=== PATIENT | male | born 1945 | race Caucasian/White ===

== ENCOUNTER → 2024-01-18 | Day surgery (SDC) | payer MEDICARE ==
[~2024-01-18] MED LIST: Iohexol 300 - 10 ML VIAL IV ONE; Midazolam 2 MG/2 ML VIAL IV ONE; Topical Skin Adhesive 1 EACH (0.5 ML) TOP ONE; fentaNYL 100 MCG/2 ML VIAL ONE
== END ==
LOC: MSO 08:38
DX: S32.048A Other fracture of fourth lumbar vertebra, initial encounter for closed fracture (principal); M54.16 Radiculopathy, lumbar region; Y92.096 Garden or yard of other non-institutional residence as the place of occurrence of the external cause; W01.0XXA Fall on same level from slipping, tripping and stumbling without subsequent striking against object, initial encounter; Z79.01 Long term (current) use of anticoagulants; Z87.891 Personal history of nicotine dependence; Z95.0 Presence of cardiac pacemaker
CPT/HCPCS: C1713; J0690; J2250; J2704; J3010; J7120; Q9967